=== PATIENT | female | born 1950 | race African-American/Black ===

== ENCOUNTER 2024-06-28 06:00 | Emergency (ER) | payer OTHER ==
[~2024-06-28] VITALS: Ht 172.7 cm; Wt 50.0 kg
[2024-06-28 06:08] VITALS: BP 134/73; PULSE 72; RESP 18; TEMP 98.6; O2SAT 100
[2024-06-28] MEDS ORDERED: CILO100T3 PO (06:20)
[2024-06-28] MEDS ORDERED: ALEN70TA65 PO (06:20)
[2024-06-28] MEDS ORDERED: RIVA2.5T3 PO (06:20)
[2024-06-28] MEDS ORDERED: CALC-613 PO (06:20)
[2024-06-28] MEDS ORDERED: FERR-82 PO (06:20)
[2024-06-28] MEDS ORDERED: PRED-554 PO (07:10)
[2024-06-28] MEDS ORDERED: HYDR-4527 PO (07:10)
[2024-06-28] MEDS ORDERED: ACET-66 PO (07:10)
[2024-06-28] MEDS ORDERED: TRIA15CR49 TP (07:10)
[2024-06-28] MEDS: PredniSONE 20 MG TABLET PO ONE (07:19)
[2024-06-28] MEDS: HydrOXYzine HCL 25 MG TABLET PO ONE (07:19)
== END 2024-06-28 07:25 | disposition home or self-care (01) ==
LOC: EMS 06:03
DX: L20.9 Atopic dermatitis, unspecified (principal); J44.9 Chronic obstructive pulmonary disease, unspecified; R63.4 Abnormal weight loss; E78.00 Pure hypercholesterolemia, unspecified; I10 Essential (primary) hypertension; Z87.891 Personal history of nicotine dependence
CPT/HCPCS: 99283; J7512